=== PATIENT | female | born 1995 | race Caucasian/White ===

== ENCOUNTER 2018-11-24 20:26 | Emergency (ER) | payer OTHER ==
[~2018-11-24] VITALS: Ht 160 cm; Wt 54.4 kg
[2018-11-24 20:31] VITALS: BP 140/80
--- NOTE | 2018-11-24 20:34 | NUR ---
TO LOBBY A/W BED, NELLA MANN NOTED
--- NOTE | 2018-11-24 20:50 | NUR ---
PT AMBULATED TO ER BED 4
--- NOTE | 2018-11-24 21:04 | NUR ---
22 Y FEMALE C/O LOWER ABD, PAINFUL URINATION, VAGINAL DISCHARGE FOR 4 DAYS, GEN BODY WEAKNESS. PT STATES IT HURTS DURING INTERCOURSE. VAGINAL DISCHARGE YELLOW/WHITE. PAIN 7/10 ACHING. VSS AT THIS TIME. [id number]. BED IS DOWN, LOCKED, BED RAIL X 1, ERMD NOTIFIED. [facility]- LEUKEMIA AT AGE 2
--- NOTE | 2018-11-24 21:16 | NUR ---
REORT GIVEN TO ROMAN FOWLER
[2018-11-24 21:17] LABS: APPEARANCE,URINE CLEAR (CLEAR); BILIRUBIN,URINE NEGATIVE (NEGATIVE); BLOOD, URINE TRACE-L (NEGATIVE); COLOR,URINE YELLOW (YELLOW); LEUKOCYTE ESTERASE ,URINE NEGATIVE (NEGATIVE); NITRITE, URINE NEGATIVE (NEGATIVE); UGLUCOSE NEGATIVE (NEGATIVE)
[2018-11-24 21:22] LABS: RBC,URINE 0-5 /HPF (0-5); WBC,URINE 0-5 /HPF (0-5)
--- NOTE | 2018-11-24 21:33 | NUR ---
DR MOREAU AT BEDSIDE EVALUATING PT.
--- NOTE | 2018-11-24 23:35 | NUR ---
Pelvic exam performed by DR MOREAU with MYSELF at bedside for entire examination. Patient tolerated procedure WELL. Patient assisted to position of comfort after examination.
[2018-11-25] MEDS ORDERED: AZITHROMYCIN 250 MG TAB PO ONE
[2018-11-25] MEDS ORDERED: cefTRIAXone 250 MG in LIDOCAINE MPF 1% - 5 mL VIAL 0.9 ML IM ONE ×2
[2018-11-25 00:35] VITALS: BP 133/64
--- NOTE | 2018-11-25 00:35 | NUR ---
Patient discharged with v/s stable. Written and verbal after care instructions given and explained. Patient verbalized understanding. Ambulatory with steady gait. All questions addressed prior to discharge. Advised to follow up with PMD.
[2018-11-29 06:14] LABS: CHLAMYDIA TRACHOMATIS AMP DNA Negative (Negative)
== END 2018-11-25 00:35 | disposition home or self-care (01) ==
LOC: MED 20:26
DX: N89.8 Other specified noninflammatory disorders of vagina (principal); R53.1 Weakness; R30.0 Dysuria; R50.9 Fever, unspecified; R10.30 Lower abdominal pain, unspecified
CPT/HCPCS: 36415; 81001; 81025; 87070; 87205; 87210; 87804; 96372; 99283; J0696; J2001; 87491